=== PATIENT | female | born 1950 | race Caucasian/White ===

== ENCOUNTER → 2016-09-01 | Outpatient (CLI) | payer MEDICARE | END | disposition disaster alternative care site (69) | LOC: GBCOE 13:30 | DX: Z13.820 Encounter for screening for osteoporosis (principal); Z78.0 Asymptomatic menopausal state; C50.412 Malignant neoplasm of upper-outer quadrant of left female breast; I89.0 Lymphedema, not elsewhere classified; Z79.899 Other long term (current) drug therapy ==